=== PATIENT | female | born 1965 | race Caucasian/White ===

== ENCOUNTER 2019-03-25 11:08 | Day surgery (SDC) | payer OTHER ==
[~2019-03-25] VITALS: Ht 152.4 cm; Wt 60.3 kg
[~2019-03-25 11:08] MED LIST: NS 1,000 ML IV ONE; OMEP40CA2 PO
[2019-03-25] MEDS ORDERED: PROPOFOL 200 MG/20 ML VIAL As Ordered ONE ×2 (12:10→12:11)
[2019-03-25] MEDS ORDERED: LIDOCAINE 2% INJ 100 MG/5 ML SDV (FOR ANES.) As Ordered ONE (12:10)
[2019-03-25 13:01] VITALS: BP 115/63
--- NOTE | 2019-03-25 13:15 | ROOR ---
Patient Name: Sindi Silva Procedure Date: 03/25/2019 12:03 PM Date of : 1965 Age: 53 Room: [facility] Gender: Female Note Status: Finalized Procedure: Upper GI endoscopy Indications: Dysphagia Providers: Lino Frances MD Referring MD: Geetha JACKSON MD Requesting Provider: Medicines: Monitored Anesthesia Care Complications: No immediate complications. Procedure: Pre-Anesthesia Assessment: - Prior to the procedure, a History and Physical was performed, and patient medications and allergies were reviewed. The patient is competent. The risks and benefits of the procedure and the sedation options and risks were discussed with the patient. All questions were answered and informed consent was obtained. Patient identification and proposed procedure were verified by the physician, the nurse and the anesthesiologist in the procedure room. Mental Status Examination: alert and oriented. Airway Examination: normal oropharyngeal airway and neck mobility. Respiratory Examination: clear to auscultation. CV Examination: normal. Prophylactic Antibiotics: The patient does not require prophylactic antibiotics. Prior Anticoagulants: The patient has taken no previous anticoagulant or antiplatelet agents. ASA Grade Assessment: II - A patient with mild systemic disease. After reviewing the risks and benefits, the patient was deemed in satisfactory condition to undergo the procedure. The anesthesia plan was to use monitored anesthesia care (MAC). Immediately prior to administration of medications, the patient was re-assessed for adequacy to receive sedatives. The heart rate, respiratory rate, oxygen saturations, blood pressure, adequacy of pulmonary ventilation, and response to care were monitored throughout the procedure. The physical status of the patient was re-assessed after the procedure. The Endoscope was introduced through the mouth, and advanced to the second part of duodenum. The upper GI endoscopy was accomplished without difficulty. The patient tolerated the procedure well. Findings: A non-obstructing and moderate Schatzki ring was found in the distal esophagus. Biopsies were taken with a cold forceps for histology. Verification of patient identification for the specimen was done by the physician and nurse using the patient's name, date and medical record number. Estimated blood loss was minimal. Patchy, white plaques were found in the middle third of the esophagus and in the lower third of the esophagus. Cells for cytology were obtained by brushing. The Z-line was irregular and was found 35 cm from the incisors. A medium-sized hiatal hernia was present. One non-bleeding linear gastric ulcer with a clean ulcer base (Theodore Class III) was found in the gastric antrum. The lesion was 12 mm in largest dimension. Biopsies were taken with a cold forceps for histology. Biopsies were taken with a cold forceps for Helicobacter pylori testing using CLOtest. There was a medium-sized lipoma, 20 mm in diameter, in the second portion of the duodenum. Biopsies were taken with a cold forceps for histology. Impression: - Non-obstructing and moderate Schatzki ring. Biopsied. - Esophageal plaques were found, suspicious for candidiasis. Cells for cytology obtained. - Z-line irregular, 35 cm from the incisors. - Medium-sized hiatal hernia. - Non-bleeding gastric ulcer with a clean ulcer base (Theodore Class III). Biopsied. - Duodenal lipoma. Biopsied. Recommendation: - Patient has a contact number available for emergencies. The signs and symptoms of potential delayed complications were discussed with the patient. Return to normal activities tomorrow. Written discharge instructions were provided to the patient. - Resume previous diet. - Continue present medications. - Use Protonix (pantoprazole) 40 mg PO twice daily - to be taken in morning (1/2 hour before breakfast) and at bedtime ( atleast 3 hours after last meal) for 3 months. - Follow an antireflux regimen. - Await pathology results. - Repeat upper endoscopy in 3 months to check healing. - Return to GI clinic in [facility] (address [address], [address], [place], [facility]) in 4 -- 6 weeks. Please call GI clinic @ [phone] for apppointment date and time. - Return to primary care physician. Lino Frances MD Lino Frances MD 03/25/2019 1:14:37 PM Electronically signed by Lino Frances MD Number of Addenda: 0 Note Initiated On: 03/25/2019 12:03 PM Estimated Blood Loss: Estimated blood loss was minimal.
== END 2019-03-25 13:29 | disposition home or self-care (01) ==
LOC: M OPP 11:08
PROVIDERS: ATTEND Internal Medicine Gastroenterology
DX: K22.8 Other specified diseases of esophagus (principal); K44.9 Diaphragmatic hernia without obstruction or gangrene; K25.9 Gastric ulcer, unspecified as acute or chronic, without hemorrhage or perforation; D17.5 Benign lipomatous neoplasm of intra-abdominal organs; R13.10 Dysphagia, unspecified

== ENCOUNTER → 2021-09-23 | Outpatient (CLI) | payer OTHER ==
[~2021-09-23] MED LIST changes: -NS 1,000 ML IV ONE; -OMEP40CA2 PO; +OMEP40CA4 PO
--- NOTE | 2021-09-23 11:28 | REP ---
INDICATION: ABN FINDING OF LUNG. COMPARISON: None. TECHNIQUE: 3 mm axial images were obtained through the chest without contrast. Sagittal and coronal reconstructions were obtained from the original data set. FINDINGS: A small area of increased density in the left upper lobe posteriorly measuring approximately 8 x 3 mm likely is scarring. Other areas of linear increased density are seen in the right upper lobe, right middle lobe, and lingula are very thin and likely represent scarring also. An area in the lingula is also linear but somewhat thicker and probably represents atelectasis. No other parenchymal opacifications are noted. No effusion is evident. The heart is not enlarged and no pericardial effusion is present. No significant abnormality is seen in the partially visualized upper abdomen. IMPRESSION: Areas of scarring and/or atelectasis noted through the chest but no parenchymal nodules or large areas of parenchymal opacification are identified. <Electronically signed by Roddy Gibbs > 09/23/21 [id number]
== END ==
LOC: M RAD 10:37
PROVIDERS: ATTEND Physician Assistant
DX: R91.8 Other nonspecific abnormal finding of lung field (principal)

== ENCOUNTER → 2021-11-03 | Outpatient (REF) ==
--- NOTE | 2021-11-03 13:36 | REP ---
INDICATION: HIP PAIN. COMPARISON: None TECHNIQUE: AP pelvis two views each hip FINDINGS: There is mild bilateral asymmetric hip joint space narrowing right slightly greater than left. The femoral heads are spherical in shape. There is no acute fracture, dislocation, or subluxation. There is no evidence of buttressing. IMPRESSION: Mild bilateral hip degenerative changes as described above. <Electronically signed by Ga Birmingham > 11/03/21 [id number]
== END ==
LOC: M PLAIMG 12:54
PROVIDERS: ATTEND Internal Medicine
DX: M25.551 Pain in right hip (principal); M25.552 Pain in left hip

== ENCOUNTER → 2022-03-21 | Outpatient (CLI) | payer OTHER | LOC: M PLAIMG 10:09 | PROVIDERS: ATTEND Physician Assistant | DX: R91.8 Other nonspecific abnormal finding of lung field (principal); J98.4 Other disorders of lung ==

== ENCOUNTER → 2023-07-03 | Outpatient (CLI) | payer OTHER | LOC: M PLARAD 09:13 | PROVIDERS: ATTEND Physician Assistant | DX: R91.1 Solitary pulmonary nodule (principal); J34.2 Deviated nasal septum; J34.89 Other specified disorders of nose and nasal sinuses; I65.22 Occlusion and stenosis of left carotid artery; I70.0 Atherosclerosis of aorta; I25.10 Atherosclerotic heart disease of native coronary artery without angina pectoris; K57.90 Diverticulosis of intestine, part unspecified, without perforation or abscess without bleeding | CPT/HCPCS: 78815; A9552 ==

== ENCOUNTER → 2024-03-13 | Outpatient (CLI) | payer OTHER | LOC: M RAD 08:31 | PROVIDERS: ATTEND Physician Assistant | DX: R91.1 Solitary pulmonary nodule (principal); R91.8 Other nonspecific abnormal finding of lung field; Z87.81 Personal history of (healed) traumatic fracture ==